=== PATIENT | female | born 1945 | race Caucasian/White ===

== ENCOUNTER → 2016-10-14 | Outpatient (CLI) | payer MEDICARE ==
[2016-10-14 14:19] LABS: HEMOGLOBIN 12.2 gm/dl (12.3-15.3); RED BLOOD COUNT 3.94 M/UL (4.00-5.10); WHITE BLOOD COUNT 5.3 K/UL (4.5-11.0)
[2016-10-14 14:42] LABS: BUN/CREATININE RATIO 20 (0-10)
== END ==
LOC: LAB 13:03
PROVIDERS: Nurse Practitioner Family
DX: I10 Essential (primary) hypertension (principal); E78.5 Hyperlipidemia, unspecified
CPT/HCPCS: 36415; 80053; 80061; 84439; 84443; 85025

== ENCOUNTER → 2016-11-09 | Outpatient (CLI) | payer MEDICARE | LOC: EXRD 14:13 | DX: M25.562 Pain in left knee (principal) | CPT/HCPCS: 73560 ==

== ENCOUNTER → 2021-01-20 | Outpatient (CLI) | payer MEDICARE, OTHER ==
[~2021-01-20] MED LIST: ALPRAZOLAM0.5 MG PO; ASPIRIN 325MG325 MG PO; COCONUT OIL1000 MG PO; COQ-10100 MG PO; ESSENTIAL DAIL1 EACH PO; FLEXERIL 10 MG10 MG PO; MUCINEX1200 MG PO; ONDANSETRON ODT4 MG SL; PERCOCET 10-321 EACH PO; PLAVIX 75 MG TA75 MG PO; PRAVASTATIN SOD10 MG PO; PROAIR HFA8.5 GM INH; PROTONIX40 MG PO; VASOTEC 5 MG TAB5 MG PO; ZANAFLEX4 MG PO; ZOLOFT100 MG PO
== END ==
LOC: KOH-I 13:59 → EXRD 14:00 → KOH-I 14:00 → MAMO 15:00 → KOH-I 15:47
DX: Z12.31 Encounter for screening mammogram for malignant neoplasm of breast (principal); Z78.0 Asymptomatic menopausal state; M85.88 Other specified disorders of bone density and structure, other site
CPT/HCPCS: 77063; 77067; 77080

== ENCOUNTER 2021-02-25 17:49 | Emergency (ER) | payer MEDICARE, OTHER ==
[~2021-02-25 17:49] MED LIST changes: -MUCINEX1200 MG PO; -ONDANSETRON ODT4 MG SL; -PROAIR HFA8.5 GM INH
[2021-02-25 18:57] LABS: HEMOGLOBIN 12.3 gm/dl (12.3-15.3); RED BLOOD COUNT 4.01 M/UL (4.00-5.10); WHITE BLOOD COUNT 4.1 K/UL (4.5-11.0)
[2021-02-25 19:23] LABS: BUN/CREATININE RATIO 27 (0-10)
[2021-02-25] MEDS ORDERED: PROAIR HFA8.5 GM INH (21:06)
[2021-02-25] MEDS ORDERED: ONDANSETRON ODT4 MG SL (21:06)
[2021-02-25] MEDS ORDERED: MUCINEX1200 MG PO (21:06)
== END 2021-02-25 23:00 | disposition home or self-care (01) ==
LOC: ER1 17:49
PROVIDERS: Physician Assistant
DX: U07.1 COVID-19 (principal); Z23 Encounter for immunization; I10 Essential (primary) hypertension; I25.10 Atherosclerotic heart disease of native coronary artery without angina pectoris; Z90.710 Acquired absence of both cervix and uterus
CPT/HCPCS: 71045; 80053; 81001; 85025; 99284; M0243; U0002

== ENCOUNTER → 2021-03-20 | Outpatient (CLI) | payer MEDICARE, OTHER ==
[~2021-03-20] MED LIST changes: +MUCINEX1200 MG PO; +ONDANSETRON ODT4 MG SL; +PROAIR HFA8.5 GM INH
== END ==
LOC: EXRD 08:56
DX: R06.02 Shortness of breath (principal); R91.8 Other nonspecific abnormal finding of lung field
CPT/HCPCS: 71046

== ENCOUNTER → 2021-06-03 | Outpatient (CLI) | payer MEDICARE, OTHER | LOC: RAD 12:08 | DX: R06.02 Shortness of breath (principal); R91.8 Other nonspecific abnormal finding of lung field | CPT/HCPCS: 71046 ==

== ENCOUNTER → 2021-06-12 | Outpatient (CLI) | payer MEDICARE, OTHER | LOC: KOH-I 10:15 | DX: R91.8 Other nonspecific abnormal finding of lung field (principal) | CPT/HCPCS: 71250 ==

== ENCOUNTER → 2021-07-16 | Outpatient (CLI) | payer MEDICARE, OTHER | LOC: NM 09:55 | DX: M89.8X9 Other specified disorders of bone, unspecified site (principal); M54.50 Low back pain, unspecified; R91.8 Other nonspecific abnormal finding of lung field | CPT/HCPCS: 78306; A9503 ==

== ENCOUNTER → 2021-09-03 | Outpatient (CLI) | payer MEDICARE, OTHER ==
[~2021-09-03] MED LIST changes: +AMLODIPINE BESYL5 MG PO; +ATENOLOL25 MG PO; +CATAPRES 0.1MG0.1 MG PO; +ROPINIROLE HC0.25 MG PO
[2021-09-03 09:12] LABS: HEMOGLOBIN 13.1 gm/dl (12.3-15.3); RED BLOOD COUNT 4.22 M/UL (4.00-5.10); WHITE BLOOD COUNT 4.6 K/UL (4.5-11.0)
== END ==
LOC: CT 08:18
PROVIDERS: Internal Medicine Critical Care Medicine
DX: R91.8 Other nonspecific abnormal finding of lung field (principal); Z20.822 Contact with and (suspected) exposure to COVID-19
CPT/HCPCS: 85027; 85610; U0002